=== PATIENT | female | born 1995 | race Caucasian/White ===

== ENCOUNTER 2016-07-20 21:26 | Observation (INO) | payer BC ==
[2016-07-20] MEDS ORDERED: Sodium Chloride 0.9% 1,000 ML PRIMARY IV ONE (21:47)
[2016-07-20] MEDS ORDERED: NORMAL SALINE 10 ML SYRINGE FLUSH IVP PRN (21:47)
[2016-07-20 22:02] LABS: BASOPHILS # (AUTO) 0.02 10*3/UL; BASOPHILS % (AUTO) 0.2 % (0-1); EOSINOPHILS % (AUTO) 0.8 % (0-8); HEMATOCRIT 42.4 % (37.0-47.0); HEMOGLOBIN 14.5 g/dL (12.0-16.0); LYMPHOCYTES # (AUTO) 2.43 10*3/uL; MEAN CORPUSCULAR HEMOGLOBIN 28.7 PG (27-31); MEAN CORPUSCULAR HGB CONC 34.2 g/dL (33-37); MEAN PLATELET VOLUME 9.7 FL (7.4-12.2); MONOCYTES # (AUTO) 0.89 10*3/UL (0.3-0.8); MONOCYTES % (AUTO) 7.5 % (5-15); NEUTROPHILS # (AUTO) 8.38 10*3/UL; NEUTROPHILS % (AUTO) 70.8 % (50-80); RED BLOOD COUNT 5.05 10^6/uL (4.20-5.40)
[2016-07-20 22:03] LABS: PLATELET MORPHOLOGY COMMENT NORMAL MORPHOLOGY (NORM); RBC MORPHOLOGY COMMENT NORMAL MORPHOLOGY (NORM); WBC MORPHOLOGY COMMENT NORMAL MORPHOLOGY (NORM)
[2016-07-20 22:09] LABS: BLOOD UREA NITROGEN 9 mg/dL (7-22); BUN/CREATININE RATIO 12.85 (6-20); CALCIUM 10.2 mg/dL (8.7-10.7); EST GLOMERULAR FILTRATION > 60 (>60 ml/min/1.73m(2)); LIPASE 85 IU/L (23-300); SERUM ALBUMIN 4.3 g/dL (3.5-4.8)
[2016-07-20 22:13] LABS: BILIRUBIN,URINE NEGATIVE (NEG); CLARITY,URINE CLEAR (CLEAR); COLOR,URINE YELLOW; GLUCOSE, URINE (UA) NEGATIVE (NEG); NITRATE,URINE NEGATIVE (NEG); OCCULT BLOOD,URINE MODERATE (NEG); PROTEIN,URINE NEGATIVE (NEG); UROBILINOGEN,URINE 0.2 EU/dL (0.2)
[2016-07-20 22:14] LABS: BACTERIA,URINE RARE; SQUAMOUS EPITHELIAL CELL,UR RARE; URINE SAMPLE TYPE CLEAN CATCH URINE
[2016-07-21] MEDS ORDERED: Ertapenem Inj 1 GM in Sodium Chloride 0.9% 100 ML IV ONE (00:48)
[2016-07-21] MEDS ORDERED: MORPHINE SULFATE 4 MG/1 ML IVP ONE ×2 (00:48→02:35)
[2016-07-21] MEDS ORDERED: NORMAL SALINE 10 ML SYRINGE FLUSH IVP PRN ×4 (00:49→09:34)
[2016-07-21] MEDS ORDERED: MORPHINE SULFATE 2 MG/1 ML IVP PRN ×2 (02:36→09:34)
[2016-07-21] MEDS: Sodium Chloride 0.9% 1,000 ML PRIMARY IV SCH ×2 (02:42→09:38)
--- NOTE | 2016-07-21 05:18 | PDOC ---
Abdomen/Flank HPI - General Chief Complaint: Abdomen Pain Stated Complaint: RIGHT LOWER ABDOMEN PAIN SINCE 1830 WITH DIARRHEA Date Seen by Provider: 07/20/16 Time Seen by Provider: 21:35 Source: POSITIVE: Patient Exam Limitations: POSITIVE: No limitations Nurse's Notes Reviewed & Considered: Yes - History of Present Illness Initial Comments: The patient is a 21-year-old female. She presents to the emergency room with chief complaint of right lower abdominal pain. She states that for the past 2 days she has felt "constipated". Late this morning she began to develop some paraumbilical abdominal pain which is since migrated to the right lower quadrant. She states she has had some loose bowel movements today. She has not had any known fevers. No nausea, vomiting, melena, hematochezia, dysuria or hematuria. She last ate tonight at around 1730. She is 0 para 0. She states that she was on control up until the end of May. She states she's not had a menstrual cycle since the end of May. Body Location Affected: REPORTS: Abdomen Timing: REPORTS: Gradual, Getting Worse Duration: <24 hours Severity: Moderate Quality: REPORTS: "Pain" Abdominal Pain Onset Location: REPORTS: RLQ, Periumbilical Abdominal Pain Radiation: REPORTS: RLQ Context: REPORTS: None Modifying Factors: improves with: Nothing Associated Symptoms: REPORTS: Diarrhea Similar Symptoms Previously: No Recent Care Received: REPORTS: Denies Any Prior Injuries Related to Current Complaint?: No - Patient Home Medications Home Medications: Home Medications NK [No Home Medications Reported] 07/20/16 - Patient Allergies Allergies/Adverse Reactions: Allergies Allergy/AdvReac Type Severity Reaction Status Date / Time No Known Allergies Allergy Verified 07/20/16 21:30 Past Medical History - heen HEENT History: Denies History Cardiovascular History: Denies History Respiratory History: Denies History Gastrointestinal History: Denies History Genitourinary History: Denies History Endocrine History: Denies History Musculoskeletal History: Denies History Neurological History: Denies History Blood Disorders: Denies History Psychiatric History: Denies History History of Sexually Transmitted Diseases: No Female Reproductive History: Denies History Obstetrical History: Denies History Cancer History: Denies History In Past Year Been Physically Harmed or Verbally Threatened: No History of MDRO: No History of Other Communicable Diseases: No Tobacco Use: Never Smoker Alcohol Use: Occasionally Substance Use Type: None Previous Surgical History: Yes Type / Date of Surgery: COLONSCOPY Significant Family History: No pertinent family hx Past Medical History Reviewed: Reviewed - No Changes ROS - Limitations ROS Limitations: No Limitations Constitution: REPORTS: Denies Symptoms Cardiovascular: REPORTS: Denies Cardiac Symptoms Respiratory: REPORTS: Denies Resp Symptoms Neurological: REPORTS: Denies Neuro Symptoms Gastrointestinal: REPORTS: Abdominal Pain Endocrine: REPORTS: Denies Symptoms Musculoskeletal: REPORTS: Denies MS Symptoms Genitourinary: REPORTS: Denies Symptoms Eyes: REPORTS: Denies Symptoms ENT: REPORTS: Denies Symptoms Skin: REPORTS: Denies Skin Symptoms Lympathic: REPORTS: Denies Lympathic Symptoms Immunologic: POSITIVE: Denies Symptoms Psychiatric: POSITIVE: Denies Psych Symptoms Abdominal/Flank Pain PE - General Appearance General Appearance: POSITIVE: Alert, Cooperative, No Acute Distress, No Evidence of Trauma - HEENT HEENT: POSITIVE: Head Inspection Nml, Eyes Inspection Nml, Ears Inspection Nml, Nose Inspection Nml, Oral/Dental Inspect. Nml, Pharynx Inspect. Nml, PERRL, EOMI - Neck Neck: POSITIVE: Normal Inspection, No Apparent Injury - Respiratory Respiratory: POSITIVE: No Respiratory Distress, Breath Sounds Normal, Chest Non- Tender - Cardiovascular Cardiovascular: POSITIVE: Regular Rate and Rhythm, Heart Sounds Normal, Equal Pulses, Strong Pulses Peripheral Pulses: Radial (R): 2+, Radial (L): 2+ - Chest Chest: POSITIVE: Non Tender - Abdomen Abdomen: Soft: (All Quadrants), Normal Bowel Sounds: (All Quadrants), No Splenomegaly: (LLQ), (LUQ), (RUQ), No Hepatomegaly: (All Quadrants), No Guarding : (All Quadrants), No Rebound: (All Quadrants), No Palpable Pulse: (All Quadrants), No Palpabale Mass: (All Quadrants), No Distention: (All Quadrants), No Rigidity: (All Quadrants), Tenderness Noted: (RLQ) Additional Abdominal Details: Abdominal examination shows bowel sounds to be present. Patient does express pain on palpation over the right lower abdominal quadrant. No masses, organomegaly or rebound. - Back Back: POSITIVE: Normal Inspection - Skin Skin: POSITIVE: Intact, Normal For Race, Warm, Dry, No Rash - Extremities Extremity: Non-Tender: (All Extremities), Normal ROM: (All Extremities), Normal Inspection: (All Extremities) - Neurological Neurological: POSITIVE: Oriented X3, battery filler Normal As Tested, Motor Normal, Sensation Normal, 5, 6 - Psychological Psychiatric: POSITIVE: Affect Appropriate, Mood Appropriate Images - Complete Complete: 1 - Area of abdominal pain Abdomen Progress - Results Reviewed by me Xrays/CTs/US Reviewed by me: Yes Discussed with Radiologist: Yes Radiology Findings: CT of abdomen and pelvis with IV contrast compatible with early acute appendicitis per radiologist. Lab Results Reviewed: Yes Lab Results:: Laboratory Results 07/20/16 Range/Units 21:57 WBC 11.84 H (4.8-10.8) 10^3/uL RBC 5.05 (4.20-5.40) 10^6/uL Hgb 14.5 (12.0-16.0) g/dL Hct 42.4 (37.0-47.0) % MCV 84.0 (81-99) FL MCH 28.7 (27-31) PG MCHC 34.2 (33-37) g/dL RDW Std Deviation 39.9 (39-50) fL RDW Coeff of Ynes 13.2 (11.5-14.5) % Plt Count 338 (140-350) 10*3/uL MPV 9.7 (7.4-12.2) FL Immature Gran % (Auto) 0.2 (0-5) % Neut % (Auto) 70.8 (50-80) % Lymph % (Auto) 20.5 (10-50) % [place] % (Auto) 7.5 (5-15) % Eos % (Auto) 0.8 (0-8) % Baso % (Auto) 0.2 (0-1) % Immature Gran # (Auto) 0.02 10*3/UL Neut # (Auto) 8.38 10*3/UL Lymph # (Auto) 2.43 10*3/uL [place] # (Auto) 0.89 H (0.3-0.8) 10*3/UL Eos # (Auto) 0.10 10*3/UL Baso # (Auto) 0.02 10*3/UL WBC Morphology Comment Normal morphology (NORM) Plt Morphology Comment Normal morphology (NORM) RBC Morph Comment Normal morphology (NORM) Sodium 142 (135-145) meq/L Potassium 3.2 L (3.8-5.2) meq/L Chloride 104 (98-112) meq/L Carbon Dioxide 23 (23-33) meq/L Anion Gap 15 (5-20) BUN 9 (7-22) mg/dL Creatinine 0.7 (0.50-1.20) mg/dL Estimated GFR > 60 (>60 ml/min/1.73m(2)) BUN/Creatinine Ratio 12.85 (6-20) Glucose 98 (78-110) mg/dL Calculated Osmolality 292.0 (267-292) mOsm/kg Calcium 10.2 (8.7-10.7) mg/dL Total Bilirubin 0.5 (0.3-1.2) mg/dL AST 24 (8-39) IU/L ALT 31 (9-52) IU/L Alkaline Phosphatase 61 (38-126) IU/L Total Protein 7.8 (6.1-8.0) g/dL Albumin 4.3 (3.5-4.8) g/dL Globulin 3.5 (2.50-4.10) g/dL Albumin/Globulin Ratio 1.20 L (1.3-2.0) mg/g Amylase 62 (30-110) U/L Lipase 85 (23-300) IU/L Serum HCG, Qual Negative Ur Collection Type Clean catch urine Urine Color Yellow Urine Clarity Clear (CLEAR) Urine pH 7.0 (5.0-8.5) Ur Specific [place] 1.010 (1.005-1.030) Urine Protein Negative (NEG) mg/dl Urine Glucose (UA) Negative (NEG) mg/dL Urine Ketones Negative (NEG) Urine Occult Blood Moderate H (NEG) Urine Nitrate Negative (NEG) Urine Bilirubin Negative (NEG) Urine Urobilinogen 0.2 (0.2) EU/dL Ur Leukocyte Esterase Negative (NEG) Urine RBC 4-6 (NONE) /hpf Urine WBC 1-3 (NONE) Ur Squamous Epith Cells Rare (NONE) Ur Renal Epithelial Cell None (NONE) Urine Crystals None Urine Bacteria Rare (NONE) Urine Casts None (NONE) Urine Mucus None (NONE) Urine Trichomonas None (NONE) Urine Yeast None (NONE) Ur Culture Indicated? Culture not set - Patient's Progress Pain Medication Addressed: POSITIVE: Yes (Morphine sulfate 4 mg IV given) School/Work Release Addressed: POSITIVE: Not Applicable Re-examine Time: 00:05 Re-Examine Comment: Diagnosis of likely appendicitis discussed with patient. Case discussed with surgeon economic adviser, Dr. Silveira. 1 g of Invanz given. Patient admitted to to Dr. Silveira for further evaluation and treatment. Status: POSITIVE: Unchanged, Re-Examined - Consult Consult (If Yes, Name of Consulting MD & Time Called): Yes (Dr. Silveira, surgeon, [id number]) Consulting MD will see pt:: POSITIVE: [facility] [place] Admit Counseled: POSITIVE: Patient, RE: Lab Results, RE: Radiology Results, RE: DX, RE : Need for F/U Patient Care Time - Estimated PCT Patient Care Time (In Minutes): 50 Vital Signs - Recent Vital Signs Vital Signs: Vital Signs (Last 8 hours) Temp Pulse Resp BP Pulse Ox 07/20/16 21:30 98.2 F 114 H 20 135/91 99 - VS Reviewed Vital Signs Reviewed: Yes Discharge Clinical Impression: Appendicitis Discharge Disposition: Admit to Inpatient Condition: Stable Date Decision to Admit to Inpatient: 07/21/16 Time Decision to Admit to Inpatient: 00:15
[2016-07-21] MEDS ORDERED: Lactated Ringers 1,000 ML PRIMARY IV ONE ×2 (06:14→07:37)
[2016-07-21] MEDS ORDERED: LIDOCAINE W/ SODIUM BICARB 0.5 ML SYR SUBD PRN (06:32)
--- NOTE | 2016-07-21 06:40 | PDOC ---
History and Physical - History of Present Illness Date and Time of Service: 07/21/2016 6:30 AM Chief Complaint: Right lower quadrant abdominal pain with nausea and diarrhea. History of Present Illness: Patient is a 21-year-old female who reports since Sunday she is felt constipated and had diarrhea. She's had some nausea as well. Yesterday she got off work and about 5:30 PM developed severe right lower quadrant abdominal pain. She presented to the emergency room last night and was evaluated. Her white count was slightly elevated at 11,800. CT scan showed early appendicitis. She was given appropriate antibiotics, pain medicines, and IV fluids. I'm here to see her this morning to discuss appendectomy. Patient has never had a pain like this before. Other than diarrhea alternating with constipation and nausea and then the new onset of right lower quadrant pain she denies other symptoms. Specifically she denies fever or chills. She has been on a host of control pills recently. She did not have a menstrual cycle in June. Her test is negative. Past Medical History Medical History: No significant medical problems. Surgical History: Colonoscopy approximately a year ago. Tobacco Use: Never Smoker Substance Use Type: None Alcohol Use: Rarely Medication / Allergies Home Medications: Home Medications Medication Instructions Recorded Confirmed Type NK [No Home Medications Reported] 07/20/16 07/20/16 History Allergies/Adverse Reactions: Allergies Allergy/AdvReac Type Severity Reaction Status Date / Time No Known Allergies Allergy Verified 07/20/16 21:30 Review of Systems - Gastrointestinal Gastrointestinal / Abdominal: REPORTS: Nausea, Diarrhea, Constipation, Abdominal Pain, See HPI Exam - Vitals Vital Signs: Vital Signs Temperature 97.0 F Temperature Source Temporal Artery Scan Pulse Rate [Pulse Oximeter] 100 Respiratory Rate 18 Blood Pressure [Right Arm] 120/64 Pulse Ox 96 Oxygen Delivery Method Room Air Height 5 ft 7 in Weight 91.444 kg - General General Appearance: POSITIVE: No Acute Distress, Cooperative - Respiratory Respiratory Exam: POSITIVE: Clear to Auscultation - Bilaterally, Breathing Non Labored - Cardiovascular Cardiovascular Exam: POSITIVE: RRR, No Murmur - GI/Abdominal GI/Abdominal Exam: POSITIVE: Normal Bowel Sounds, Non Distended, Soft Additional GI/Abdominal Exam Details: Focal right lower quadrant tenderness without peritoneal signs. - Rectal Rectal Exam: POSITIVE: Deferred - Neurological Neurological Exam: POSITIVE: Alert, Oriented x 3 - Psychiatric Psychiatric Exam: POSITIVE: Normal Affect, Normal Mood Results - Labs CBC and BMP: 07/20/16 21:57 07/20/16 21:57 - Imaging Status: Image Reviewed by Me Assessment and Plan - Patient Problems (1) Acute appendicitis Current Visit: Yes Status: Acute Priority: High Diagnosis Date: 07/21/16 Comment: Clinical exam and CT scan consistent with early acute appendicitis. Appendicitis and its treatment have been discussed with the patient in detail. We'll proceed with appendectomy.The procedure has been discussed with the patient in complete yet simple terms including benefits, risks, and alternatives. All questions have been answered. Informed consent has been obtained.
[2016-07-21] MEDS ORDERED: BUPIVACAINE 0.5% W/ EPI - 10 ML VIAL ONE (06:42)
[2016-07-21] MEDS ORDERED: Lactated Ringers 1,000 ML PRIMARY IV SCH ×2 (06:45→08:00)
[2016-07-21] MEDS ORDERED: ROCURONIUM 10 MG/1 ML - 5 ML VIAL IVP ONE ×2 (06:52→07:40)
[2016-07-21] MEDS ORDERED: fentaNYL Inj 250 MCG/5 ML VIAL ONE (06:53)
[2016-07-21] MEDS ORDERED: LIDOCAINE MPF 2% - 5 ML (20 MG/1 ML) ONE (06:53)
[2016-07-21] MEDS ORDERED: MIDAZOLAM 5 MG/1 ML ONE (06:53)
[2016-07-21] MEDS ORDERED: KETOROLAC 30 MG/1 ML VIAL ONE (07:25)
[2016-07-21] MEDS ORDERED: ONDANSETRON 4 MG/2 ML VIAL ONE (07:25)
[2016-07-21] MEDS ORDERED: KETAMINE 100 MG/1 ML - 5 ML ONE (07:25)
[2016-07-21] MEDS ORDERED: SUGAMMADEX SODIUM 200 MG/2 ML VIAL IV ONE (07:49)
[2016-07-21] MEDS ORDERED: HYDROmorphone 2 MG/1 ML IVP PRN (07:57)
[2016-07-21] MEDS ORDERED: fentaNYL Inj 100 MCG/2 ML VIAL IVP PRN (07:57)
[2016-07-21] MEDS ORDERED: PROMETHAZINE 25 MG/1 ML VIAL IM PRN (07:57)
[2016-07-21] MEDS ORDERED: HYDROmorphone 2 MG/1 ML ONE (08:16)
--- NOTE | 2016-07-21 08:33 | GEN.OPNOTE ---
Operative Note Surgery Date: 07/21/16 Preoperative Diagnosis: Acute appendicitis. Postoperative Diagnosis: Acute appendicitis. Procedure: Appendectomy. Surgeon: Rc Silveira MD Anesthesia Provider: Kole Padilla CRNA Anesthesia Type: General Estimated Blood Loss (mL): 3 Fluids: 1700 mL of crystalloid. Patient got 1 g IV Invanz at 1:15 AM. Patient got 30 mg of IV Toradol at the end of the procedure. Pathology: specimen to pathology. Indications: focal right lower quadrant pain and CT scan consistent with acute appendicitis. Findings: Acute appendicitis. No other intra-abdominal pathology. Complications: None. Operative Summary: Patient was taken to the operating room and placed on the operating table in the supine position. Following the induction of adequate general anesthetic the abdomen was prepped and draped in a sterile fashion. A surgical timeout was done. Standard incision was made over McBurney's point. It was carried down to the fascia with electrocautery. The external oblique was split along the course of its fibers using electrocautery. The external oblique was retracted. The abdominal wall was transected using a muscle-splitting technique. The peritoneum was elevated and incised. An James retractor was placed. The cecum and appendix were mobilized. Once fully mobilized the mesoappendix was taken down by serially clamping dividing and ligating the mesoappendix until the appendix was freed to its base. The base of the appendix was clamped with a straight clamp. The clamp was unclamped and moved distally. The base was tied off with an 0 chromic. The appendix was amputated. The stump was cauterized and inverted into the base of the cecum using a Z-plasty suture of 2- 0 Vicryl. Hemostasis was assured. Appropriate irrigation and suctioning were performed. The cecum was returned to the relative anatomic position and covered with omentum. The right ovary was seen and was normal. The peritoneum was closed with 2-0 Vicryl. The muscle layers were closed with 0 Vicryl. The wound was irrigated as we closed in layers. Final irrigation was 1/2% Marcaine with epinephrine. This was allowed to sit in the wound for several minutes and then removed. Bharti's fascia was closed with 2-0 Vicryl. The skin was closed with 4-0 Prolene followed by Mastisol, Steri-Strips, and a sterile dressing. The patient tolerated the entire procedure well without complication. She was taken to the recovery room in stable condition. All counts were correct. Patient Problems - Patient Problem List (1) Acute appendicitis Current Visit: Yes Status: Acute Diagnosis Date: 07/21/16 Priority: High
[2016-07-21] MEDS ORDERED: MIDAZOLAM 5 MG/1 ML IVP ONE (08:45)
[2016-07-21] MEDS ORDERED: ONDANSETRON 4 MG/2 ML VIAL IVP PRN (09:34)
[2016-07-21] MEDS ORDERED: HYDROcodone-APAP 5 MG -325 MG TABLET PO PRN (09:34)
[2016-07-21] MEDS ORDERED: DOCUSATE 100 MG CAPSULE PO SCH (09:34)
[2016-07-21] MEDS ORDERED: diphenhydrAMINE 50 MG/1 ML VIAL IVP PRN (10:45)
--- NOTE | 2016-07-21 10:49 | PDOC(PROG) ---
Date and Time of Service: 07/21/2016 10:45 AM Interval History: Doing well. A little sore. Mild itching. Tolerating some water. Overall feels better than preop. Objective : Data - Labs CBC and BMP: 07/20/16 21:57 07/20/16 21:57 - Vital Signs Vital Signs and I&O: Vital Signs - Last Taken Temperature 97.7 F 07/21/16 09:50 Pulse Rate 80 07/21/16 09:50 Respiratory Rate 16 07/21/16 09:50 Blood Pressure 107/63 07/21/16 09:50 Pulse Ox 93 07/21/16 09:50 Intake and Output (24hr x 4 totals) 07/19/16 07/20/16 07/21/16 07/22/16 05:59 05:59 05:59 05:59 Intake Total 2273 Output Total 500 3 Balance -500 2270 Objective : Exam - General General Appearance: No Acute Distress, Cooperative - GI/Abdominal GI/Abdominal Exam: Non Tender, Non Distended, Soft Additional GI/Abdominal Exam Details: Dressing is clean and dry and intact. Incisional tenderness only. Assessment and Plan - Patient Problems (1) Acute appendicitis Current Visit: Yes Status: Acute Priority: High Diagnosis Date: 07/21/16 Comment: Stable status post appendectomy. Continue postoperative care. Possibly home later today otherwise in the a.m. Dr. Koch will assume care. Patient is unaware I am leaving town.
[2016-07-21 13:32] VITALS: RESP 16; TEMP 97.9
[2016-07-21] MEDS ORDERED: KETOROLAC 30 MG/1 ML VIAL IVP SCH (14:00)
--- NOTE | 2016-07-25 16:09 | DCSUMMARY ---
Discharge Summary Admit Date: 07/21/16 Discharge Date: 07/21/16 Admitting Diagnosis: appendicitis Discharge Diagnosis: Appendicitis Primary Surgery and Date: Appendectomy Hospital Course: Patient underwent an emergent appendectomy by Dr. Rc Silveira. Patient did very well to the point she'll be discharged on the day of surgery. She was discharged home. Instructions given Exam - Vitals Vital Signs: Vital Signs Temperature 97.9 F Temperature Source Temporal Artery Scan Pulse Rate [Pulse Oximeter] 89 Pulse Rate 80 Respiratory Rate 16 Blood Pressure [Right Arm] 127/81 Blood Pressure 114/68 Pulse Ox 98 Oxygen Flow Rate 2 Oxygen Delivery Method Room Air Height 5 ft 7 in Weight 91.444 kg - General General Appearance: POSITIVE: No Acute Distress, Mild Distress - Eye Eye Exam: POSITIVE: PERRL, EOMI - Neck Neck Exam: POSITIVE: Normal Inspection, Full ROM - Respiratory Respiratory Exam: POSITIVE: Clear to Auscultation - Bilaterally - GI/Abdominal GI/Abdominal Exam: POSITIVE: Normal Bowel Sounds, Non Distended, Soft Patient Problems - Patient Problem List (1) Appendicitis Status: Acute
== END 2016-07-21 15:44 | disposition home or self-care (01) ==
LOC: ER 21:26 → MED/SURG 07-21 00:49 → UNDOADMIN 07-21 00:49 → OPS 07-21 06:38 → MED/SURG 07-21 06:38 → OPS 07-21 06:38 → MED/SURG 07-21 09:15
PROVIDERS: ADMIT Surgery; ATTEND Surgery
DX: K35.80 Unspecified acute appendicitis (principal)
CPT/HCPCS: 44950; 74177; 80053; 81001; 81003; 82150; 83690; 84703; 85025; 94150; 96360; 96361; 99284 ×2; J1885; J2704; J3010; 96365; 96375; 96376; J1170; J1335; J2001; J2250; J2270; J2405; J7030; J7050; J7120